=== PATIENT | female | born 1980 | race American Indian/Alaskan Native ===

== ENCOUNTER 2018-12-29 13:16 | Outpatient (CLI) | payer OTHER ==
--- NOTE | 2018-12-29 15:52 | XRay Report ---
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 COMPARISON: None. IMPRESSION: No acute osseous or soft tissue abnormality. No significant DJD. Signer Name: Austyn Cheng Jr, MD Signed: 12/29/2018 3:48 PM Workstation Name: [id number]
== END 2018-12-29 13:17 | disposition home or self-care (01) ==
LOC: XRAY 13:16
PROVIDERS: ATTEND Obstetrics & Gynecology
DX: D25.1 Intramural leiomyoma of uterus (principal)
CPT/HCPCS: 72170